=== PATIENT | female | born 1985 | race Caucasian/White ===

== ENCOUNTER 2016-02-14 13:15 | Emergency (ER) | payer OTHER ==
[~2016-02-14] VITALS: Ht 170.2 cm; Wt 56.0 kg
[2016-02-14 13:20] VITALS: BP 123/79; PULSE 78; RESP 12; TEMP 98.4; O2SAT 99
[2016-02-14 13:58] LABS: BLOOD, URINE TRACE (NEG); COMMENT (UR) CULT NOT INDICATED; CULTURE IF INDICATED CULT NOT INDICATED; GLUCOSE,URINE NEG (NEG); KETONE, URINE NEG (NEG); NITRITE,URINE NEG (NEG); PH, URINE 6.5 (5.0-8.5); SQUAMOUS EPITHELIAL CELL URINE 1 /hpf (0-5); URINE COLOR YELLOW (YELLW/STRAW)
[2016-02-14] MEDS ORDERED: SODIUM CHLOR 0.9% 1000 ML INJ 1,000 ML IV ONE (14:48)
[2016-02-14] MEDS ORDERED: SODIUM CHLORIDE 0.9% FLUSH 5 ML FLUSH IVF PRN (15:00)
[2016-02-14] MEDS ORDERED: KETOROLAC TROMETHAMINE 30 MG/ML (IVP) VIAL IVP ONE (15:00)
--- NOTE | 2016-02-14 15:14 | PD ---
HPI Chief Complaint: Complaint Time Seen by Provider: 15:00 Travel History International Travel<30 days: No Contact w/Intl Traveler<30days: No Traveled to known affect area: No History of Present Illness HPI 30-year-old female presents to the emergency room for evaluation of left flank pain, dysuria, and urgency that started 2 weeks ago. At onset of symptoms, she began taking cranberry juice and drinking more water. States one week ago it started to improve but she now has more dysuria than before. Patient reports sensitivity to her urethra especially during sex. Denies dyspareunia. Denies fever, chills, nausea, vomiting. Denies vaginal discharge or concern for STDs. Denies possibility of . PFSH Past Medical History ADHD: Yes (DURING HIGH SCHOOL/NOT FORMALLY TREATED) Autoimmune Disease: No Cancer: Yes (GRANDMOTHER(PATERNAL)BREAST CA/AUNT-BREAST CA) Cardiovascular Problems: No Chemotherapy: No Diabetes: No Diminished Hearing: No Endocrine: No Genitourinary: No Immune Disorder: No Musculoskeletal: No Neurologic: No Psychiatric: No Respiratory: No Radiation Therapy: No Sickle Cell Disease: No Thyroid Disease: No ?: Not : 5 Para: 2 Miscarriage: 2 Past Surgical History Abdominal Surgery: No AICD: No Arteriovenous Shunt: No Cardiac Surgery: No Ear Surgery: No Endocrine Surgery: No Eye Surgery: No Genitourinary Surgery: No Gynecologic Surgery: No Insulin Pump: No Joint Replacement: Yes Oral Surgery: No Pacemaker: No Thoracic Surgery: No Social History Alcohol Use: No Tobacco Use: No Substance Use: No Allergies-Medications (Allergen,Severity, Reaction): Coded Allergies: Amoxicillin (Verified Allergy, Severe, 02/14/16) Penicillin (Verified Allergy, Severe, 02/14/16) Bactrim (Verified Adverse Reaction, Severe, VOMITING, 02/14/16) Reported Meds & Prescriptions Reported Meds & Active Scripts Active No Active Prescriptions or Reported Medications Review of Systems Except as stated in HPI: all other systems reviewed are Neg Physical Exam Narrative GENERAL: Well-nourished, well-developed female in no acute distress. Afebrile. Ambulatory. SKIN: Warm and dry. HEAD: Normocephalic. EYES: No scleral icterus. No injection or drainage. NECK: Supple, trachea midline. No JVD or lymphadenopathy. GASTROINTESTINAL: Abdomen soft, non-tender, nondistended. Benign. No peritoneal signs. No significant pelvic tenderness. BACK: Nontender without obvious deformity. Very mild left-sided CVA tenderness. Data Data Last Documented VS Vital Signs Date Time Temp Pulse Resp B/P Pulse Ox O2 Delivery O2 Flow Rate FiO2 02/14/16 13:20 98.4 78 12 123/79 99 Room Air Orders Urinalysis - C+S If Indicated (02/14/16 13:21) Iv Access Insert/Monitor (02/14/16 13:21) Oxygen Administration (02/14/16 13:21) Oximetry (02/14/16 13:21) Ed Urine Pregnancytest Poc (02/14/16 13:21) Complete Blood Count With Diff (02/14/16 14:48) Basic Metabolic Panel (Bmp) (02/14/16 14:48) Ct Abd/Pel W/O Iv Contrast (02/14/16 14:48) Ketorolac Inj (Toradol Inj) (02/14/16 15:00) Sodium Chloride 0.9% Flush (Ns Flush) (02/14/16 15:00) Sodium Chlor 0.9% 1000 Ml Inj (Ns 1000 M (02/14/16 14:48) Labs Laboratory Tests Test 02/14/16 02/14/16 13:24 15:10 Urine Color YELLOW Urine Turbidity CLEAR Urine pH 6.5 Urine Specific [place] 1.019 Urine Protein NEG mg/dL Urine Glucose (UA) NEG mg/dL Urine Ketones NEG mg/dL Urine Occult Blood TRACE Urine Nitrite NEG Urine Bilirubin NEG Urine Urobilinogen LESS THAN 2.0 MG/DL Urine Leukocyte Esterase NEG Urine RBC 5 /hpf Urine WBC 1 /hpf Urine Squamous Epithelial 1 /hpf Cells Microscopic Urinalysis Comment CULT NOT INDICATED White Blood Count 7.2 TH/MM3 Red Blood Count 4.71 MIL/MM3 Hemoglobin 14.0 GM/DL Hematocrit 40.4 % Mean Corpuscular Volume 85.8 FL Mean Corpuscular Hemoglobin 29.8 PG Mean Corpuscular Hemoglobin 34.7 % Concent Red Cell Distribution Width 13.4 % Platelet Count 293 TH/MM3 Mean Platelet Volume 9.6 FL Neutrophils (%) (Auto) % Lymphocytes (%) (Auto) % Monocytes (%) (Auto) % Eosinophils (%) (Auto) % Basophils (%) (Auto) % Neutrophils # (Auto) TH/MM3 Lymphocytes # (Auto) TH/MM3 Monocytes # (Auto) TH/MM3 Eosinophils # (Auto) TH/MM3 Basophils # (Auto) TH/MM3 CBC Comment AUTO DIFF Sodium Level 139 MEQ/L Potassium Level 4.1 MEQ/L Chloride Level 106 MEQ/L Carbon Dioxide Level 26.0 MEQ/L Anion Gap 7 MEQ/L Blood Urea Nitrogen 11 MG/DL Creatinine 0.76 MG/DL Estimat Glomerular Filtration 90 ML/MIN Rate Random Glucose 79 MG/DL Calcium Level 8.8 MG/DL [facility] Medical Decision Making Medical Screen Exam Complete: Yes Emergency Medical Condition: Yes Medical Record Reviewed: Yes Differential Diagnosis Pyelonephritis versus ureteritis versus nephrolithiasis Narrative Course 30-year-old female presents to the emergency room for evaluation of left-sided flank pain, dysuria, and urgency for the past 2 weeks that improved slightly one week ago. Patient denies systemic signs of infection. Afebrile and well- appearing in the emergency room. Vital signs stable. Resting comfortably in bed. ED test is negative. UA shows microscopic hematuria but no evidence of infection. Kidney stone work up was initiated. CBC and BMP are unremarkable. CT shows bilateral ovarian cysts but no evidence of nephrolithiasis. Patient feels as though she passed the stones previously which is likely what happened. She was discharged with instructions for ovarian cysts and hematuria and told to follow up with a primary care physician or return to the emergency room for worsening symptoms. She understands and agrees to this plan. Diagnosis Primary Impression: Dysuria Additional Impression: Ovarian cyst Qualified Code: N83.201 - Cysts of both ovaries Referrals: Primary Care Physician Patient Instructions: General Instructions, Hematuria (ED), Ovarian Cyst (ED) Additional Instructions: Rest and drink plenty of fluids. Take ibuprofen with food as directed, as needed for pain. Follow-up with a primary care physician for ovarian cysts and hematuria. Return to the emergency room for worsening symptoms. Scripts No Active Prescriptions or Reported Meds Disposition: 01 DISCHARGE HOME Condition: Stable Lilian Jarrell Feb 14, 2016 15:14
[2016-02-14 15:39] LABS: HEMATOCRIT 40.4 % (35.0-46.0); MEAN CELL VOLUME 85.8 FL (80.0-100.0); MEAN CORPUSCULAR HEMOGLOBIN 29.8 PG (27.0-34.0); MEAN CORPUSCULAR HGB CONC 34.7 % (32.0-36.0); PLATELET COUNT 293 TH/MM3 (150-450); RED BLOOD COUNT 4.71 MIL/MM3 (4.00-5.30); RED CELL DISTRIBUTION WIDTH 13.4 % (11.6-17.2); WHITE BLOOD COUNT 7.2 TH/MM3 (4.0-11.0)
[2016-02-14 15:40] LABS: HEMO FLAGS AUTO DIFF
[2016-02-14 15:42] LABS: POTASSIUM 4.1 MEQ/L (3.5-5.1)
--- NOTE | 2016-02-14 16:04 | RADRPT ---
EXAM DATE/TIME: 02/14/2016 15:38 [facility] COMPARISON: No previous studies available for comparison. INDICATIONS : Lower pelvic and left flank pain. ORAL CONTRAST: No oral contrast ingested. RADIATION DOSE: 13.4 CTDIvol (mGy) MEDICAL HISTORY : None SURGICAL HISTORY : None. ENCOUNTER: Initial ACUITY: 1 day PAIN SCALE: 6/10 LOCATION: Left flank TECHNIQUE: Volumetric scanning of the abdomen and pelvis was performed. Using automated exposure control and ad justment of the mA and/or kV according to patient size, radiation dose was kept as low as reasonably achievable to obtain optimal diagnostic quality images. FINDINGS: LOWER LUNGS: The visualized lower lungs are clear. LIVER: Homogeneous density without lesion. There is no dilation of the biliary tree. No calcified gallston es. SPLEEN: Normal size without lesion. PANCREAS: Within normal limits. KIDNEYS: Normal in size and shape. There is no mass, stone, or hydronephrosis. ADRENAL GLANDS: Within normal limits. VASCULAR: There is no aortic aneurysm. BOWEL/MESENTERY: The stomach, small bowel, and colon demonstrate no acute abnormality. There is no free intraperitone al air or fluid. ABDOMINAL WALL: Within normal limits. RETROPERITONEUM: There is no lymphadenopathy. BLADDER: No wall thickening or mass. REPRODUCTIVE: 17 mm right and 15 mm left fairly simple appearing ovarian cysts are seen. No free fluid. INGUINAL: There is no lymphadenopathy or hernia. MUSCULOSKELETAL: Within normal limits for patient age. CONCLUSION: 1. Small, benign appearing cysts of both ovaries. 2. Otherwise essentially normal. No renal or ureteral calculus or evidence of obstructive uropathy. Ancelmo Encarnacion MD on February 14, 2016 at 16:01 Board Certified Radiologist. This report was verified electronically.
[2016-02-14 16:19] LABS: BASOPHILS 1 % (0-2); EOSINOPHILS 5 % (0-4); NEUTROPHIL # MANUAL DIFF 2.6 TH/MM3 (1.8-7.7); PLATELET ESTIMATE SMEAR NORMAL (NORMAL); PLATELET MORPHOLOGY NORMAL (NORMAL); POLYS (SEG NEUTROPHILS) 36 % (16-70); SCAN/DIFF FINAL DIFF MANUAL; WBC DIFF SAMPLE 100
== END 2016-02-14 16:38 | disposition home or self-care (01) ==
LOC: NEPB 13:15
DX: R30.0 Dysuria (principal); N83.202 Unspecified ovarian cyst, left side; N83.201 Unspecified ovarian cyst, right side; R31.29 Other microscopic hematuria; Z86.59 Personal history of other mental and behavioral disorders
CPT/HCPCS: 74176; 80048; 81001; 84703; 85007; 85027; 96361; 96374; 99284; J1885; J7030

== ENCOUNTER 2016-07-14 09:25 | Emergency (ER) | payer OTHER ==
[~2016-07-14] VITALS: Ht 170.2 cm; Wt 55.0 kg
[2016-07-14 09:27] VITALS: BP 136/80; PULSE 77; RESP 15; TEMP 98.3; O2SAT 98
[2016-07-14 09:47] VITALS: BP 106/64; PULSE 87; RESP 12; O2SAT 99
[2016-07-14] MEDS ORDERED: LESSTAB PO (09:47)
[2016-07-14] MEDS ORDERED: PRED20 PO (10:11)
--- NOTE | 2016-07-14 10:12 | PD ---
HPI Chief Complaint: Facial Pain or Swelling Time Seen by Provider: 10:04 Travel History International Travel<30 days: No Contact w/Intl Traveler<30days: No Traveled to known affect area: No History of Present Illness HPI Patient is a 31-year-old female presents emergency department right eye swelling for the past 18-24 hours. Patient states she was outdoors yesterday and was bit by a mosquito on her right shoulder. She states since then her right eye historian as well. Denies any visual disturbances or eye pain. States the swelling is gradually worsening and limiting her ability to open her eye. Patient states she thinks she might of been bitten by an insect on her right side of her face as well. Denies and difficulty swallowing shortness of breath wheezing or fevers. PFSH Past Medical History ADHD: Yes (DURING HIGH SCHOOL/NOT FORMALLY TREATED) Autoimmune Disease: No Cancer: Yes (GRANDMOTHER(PATERNAL)BREAST CA/AUNT-BREAST CA) Cardiovascular Problems: No Chemotherapy: No Diabetes: No Diminished Hearing: No Endocrine: No Genitourinary: No Heparin Induced Thrombocytopen: No Immune Disorder: No Implanted Vascular Access Dvce: No Medical other: Yes (MRSA) Musculoskeletal: No Neurologic: No Psychiatric: No Respiratory: No Radiation Therapy: No Sickle Cell Disease: No Thyroid Disease: No ?: Not : 5 Para: 2 Miscarriage: 2 Past Surgical History Abdominal Surgery: No AICD: No Arteriovenous Shunt: No Cardiac Surgery: No Ear Surgery: No Endocrine Surgery: No Eye Surgery: No Genitourinary Surgery: No Gynecologic Surgery: No Insulin Pump: No Joint Replacement: Yes Oral Surgery: No Pacemaker: No Thoracic Surgery: No Social History Alcohol Use: No Tobacco Use: No Substance Use: No Allergies-Medications (Allergen,Severity, Reaction): Coded Allergies: Amoxicillin (Verified Allergy, Severe, 07/14/16) Penicillin (Verified Allergy, Severe, 07/14/16) Bactrim (Verified Adverse Reaction, Severe, VOMITING, 07/14/16) Reported Meds & Prescriptions Reported Meds & Active Scripts Active Prednisone 20 Mg Tab 60 Mg PO DAILY 5 Days Reported Lessina (Levonorgestrel-Ethinyl Estradiol) 0.1-20 mg-mcg Tab 1 Tab PO DAILY Review of Systems Except as stated in HPI: all other systems reviewed are Neg Physical Exam Narrative GENERAL: Well-nourished, well-developed patient. SKIN: There is a small area of erythema without induration of the right upper extremity consistent with localized reaction to an insect bite. No abscess. No lymphadenitis. There is also some soft tissue swelling periorbital on the right eye. Left eye is not involved. There is no reddening of the skin overlying. No induration. HEAD: Normocephalic. EYES: No scleral icterus or injection. Pupils are PERRLA, I checked movements are intact. No tenderness. NECK: Supple, trachea midline. No JVD or lymphadenopathy. CARDIOVASCULAR: Regular rate and rhythm without murmurs, gallops, or rubs. RESPIRATORY: Breath sounds equal bilaterally. No accessory muscle use. GASTROINTESTINAL: Abdomen soft, non-tender, nondistended. MUSCULOSKELETAL: No cyanosis, or edema. BACK: Nontender without obvious deformity. No CVA tenderness. Data Data Last Documented VS Vital Signs Date Time Temp Pulse Resp B/P Pulse Ox O2 Delivery O2 Flow Rate FiO2 07/14/16 09:47 87 12 106/64 99 07/14/16 09:27 98.3 MDM Medical Decision Making Medical Screen Exam Complete: Yes Emergency Medical Condition: Yes Differential Diagnosis Bug bite, cellulitis seems unlikely, facial edema. Narrative Course Patient 31-year-old female appears well with some mild soft tissue edema of the right periorbital region. No airway involvement there is some small localized reaction to the right upper extremity as well. Discussed with the patient symptomatically management including steroid course. Discussed return to ED criteria. Diagnosis Primary Impression: Periorbital edema Additional Instructions: Use calamine lotion on your face and her right shoulder, use cortisone cream on her shoulder only do not apply to your face. Take her steroids until all gone. Med/Other Pt SpecificInfo: Prescription(s) given Scripts Prednisone 20 Mg Tab60 Mg PO DAILY 5 Days Ref 0 Prov:Wally Small MD 07/14/16 Disposition: 01 DISCHARGE HOME Condition: Stable Wally Small MD Jul 14, 2016 10:12
== END 2016-07-14 10:20 | disposition home or self-care (01) ==
LOC: NEPD 09:25
DX: R60.0 Localized edema (principal)
CPT/HCPCS: 99283

== ENCOUNTER 2017-06-10 16:37 | Emergency (ER) | payer OTHER ==
[~2017-06-10] VITALS: Ht 170.2 cm; Wt 55.0 kg
[~2017-06-10 16:37] MED LIST: LESSTAB PO; PRED20 PO
[2017-06-10 16:49] VITALS: BP 110/64; PULSE 66; RESP 19; TEMP 98.6; O2SAT 99
== END 2017-06-10 19:12 | disposition left against medical advice (07) ==
LOC: NED 16:37
DX: O21.9 Vomiting of pregnancy, unspecified (principal); Z3A.00 Weeks of gestation of pregnancy not specified; Z53.21 Procedure and treatment not carried out due to patient leaving prior to being seen by health care provider
CPT/HCPCS: 99281

== ENCOUNTER 2018-01-24 17:02 | Inpatient (IN) ==
[~2018-01-24 17:02] MED LIST changes: +Diphtheria/Tetanus/Pertussis Vaccine Inj 0.5 ML Syringe IM ONE; -LESSTAB PO; +Measles/Mumps/Rubella Vaccine Inj 0.5 ML Vial SQ ONE; -PRED20 PO
[2018-01-24] MEDS ORDERED: Sod Chloride 0.9% Inj 1,000 ML IV.CONT PRN (18:13)
[2018-01-24] MEDS ORDERED: Sodium Chlor 0.9% Inj 500 ML IV.SIG PRN (18:13)
[2018-01-24] MEDS ORDERED: fentaNYL Citrate Inj 100 MCG/2 ML Ampul IV.PUSH PRN ×2 (18:13)
[2018-01-24] MEDS ORDERED: Oxytocin 30 Units/500ml Premix 30 UNITS/500 ML BAG IV.SIG ONE (18:13)
[2018-01-24] MEDS ORDERED: Naloxone Inj 0.4 MG/ML Vial IV.PUSH PRN ×2 (18:13→22:45)
[2018-01-24] MEDS ORDERED: Citric Acid/Sodium Citrate Liq 30 ML UDC PO SCH (18:15)
--- NOTE | 2018-01-24 18:17 | ED ---
History of Present Illness Primary Care Physician: UNKNOWN [facility] Chief Complaint: Contractions History of Present Illness: 32-year-old at 39 weeks 1 day presents complaining of contractions. 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 Stop: 01/28/18 18:14 Fentanyl Citrate (Fentanyl Inj) 50 mcg IV.PUSH Q1H PRN PRN Reason: Pain Scale 3 - 5 Fentanyl Citrate (Fentanyl Inj) 100 mcg IV.PUSH Q1H PRN PRN Reason: PAIN SCALE 6 TO 10 Lactated Ringer's (Lr 1000 Ml Inj) 1,000 mls @ 3,000 mls/hr IV.SIG UNSCH PRN PRN Reason: compromise or epidural Lactated Ringer's (Lr 1000 Ml Inj) 1,000 mls @ 125 mls/hr IV.CONT .Q8H VALERIY Sodium Chloride (Ns Inj) 500 mls @ 1,000 mls/hr IV.SIG UNSCH PRN PRN Reason: SEE LABEL COMMENTS Oxytocin (Pitocin 30 Units/Ns 500 Ml Premix) 30 units in 500 mls @ 999 mls/hr IV.SIG BOLUS ONE Stop: 01/24/18 18:43 Sodium Chloride (Ns Inj) 1,000 mls @ 100 mls/hr IV.CONT .Q10H PRN PRN Reason: SEE LABEL COMMENTS Lidocaine HCl (Xylocaine 1% Inj) 0.1 ml I-DERMAL PRN PRN PRN Reason: For IV start Stop: 01/27/18 18:12 Lidocaine HCl (Xylocaine 1% Inj) 10 ml INFILTRATN PRN PRN PRN Reason: For episiotomy repair Stop: 01/26/18 18:12 Mineral Oil (Muri-Lube Oil) 10 ml TOPICAL PRN PRN PRN Reason: PRN perineal massage Naloxone HCl (Narcan Inj) 0.1 mg IV.PUSH Q2M PRN PRN Reason: for opiate reversal Allergies Allergy/AdvReac Type Severity Reaction Status Date / Time amoxicillin Allergy Severe Unverified 09/26/16 21:45 penicillin G Allergy Severe Unverified 09/26/16 21:45 sulfamethoxazole AdvReac Severe VOMITING Unverified 09/26/16 21:45 trimethoprim AdvReac Severe VOMITING Unverified 09/26/16 21:45 Exam Vital signs: Vital Signs 01/24/18 17:16 01/24/18 17:20 Pulse Rate 76 95 H Blood Pressure 120/72 Narrative: GENERAL: Well-nourished, well-developed patient. SKIN: Warm and dry. HEAD: Normocephalic and atraumatic. EYES: No scleral icterus. No injection or drainage. ENT: No nasal drainage noted. Mucous membranes pink. Airway patent. NECK: Supple, trachea midline. No JVD. CARDIOVASCULAR: Regular rate and rhythm without murmurs, gallops, or rubs. RESPIRATORY: Breath sounds equal bilaterally. No accessory muscle use. BREASTS: Bilateral exam showed no masses , no retractions, no nipple discharge. ABDOMEN/GI: Abdomen soft, non-tender, bowel sounds present, no rebound, no guarding Gravid to 39 weeks size Fundal Height: 39 GENITOURINARY: External Genitalia: intact and normal in appearance BUS glands: Unremarkable Cervix: Soft Dilatation: 5-6 Effacement: 90% Station: 0 Presentation: Vertex Membranes: Intact Uterine Contractions: Regular FHT's: Category: 1 Variability: Moderate EXTREMITIES: No cyanosis or edema. BACK: Nontender without obvious deformity. No CVA tenderness. NEUROLOGICAL: Awake and alert. Motor and sensory grossly within normal limits. Five out of 5 muscle strength in all muscle groups. Normal speech. Assessment and Plan - Diagnosis (1) Uterine contractions during Code(s): O62.2 - Other uterine inertia Status: Acute (2) 39 weeks gestation of Code(s): Z3A.39 - 39 weeks gestation of Status: Acute Discharge Plan - Discharge Disposition Patient Disposition: ED Admit(ED Internal Use Only) - Physicians Team ED Provider: Viviana Ríos Primary Care Provider: UNKNOWN,
[2018-01-24 18:47] LABS: Baso # (Auto) 0.1 th/mm3 (0.0-0.2); Baso % (Auto) 0.4 % (0.0-2.0); Eos # (Auto) 0.1 th/mm3 (0.0-0.4); Eos % (Auto) 0.7 % (0.0-4.0); Hematocrit 35.8 % (35.0-46.0); Hemoglobin 12.6 gm/dL (11.6-15.3); Lymph # (Auto) 2.9 th/mm3 (1.0-4.8); Lymph % (Auto) 14.3 % (9.0-44.0); Mean Corpuscular HGB Conc 35.1 % (32.0-36.0); Mean Corpuscular Hemoglobin 29.8 pg (27.0-34.0); Mean Platelet Volume 9.1 fL (7.0-11.0); Mono # (Auto) 1.2 th/mm3 (0.0-0.9); Mono % (Auto) 5.8 % (0.0-8.0); Neut % (Auto) 78.8 % (16.0-70.0); Platelet Count 347 th/mm3 (150-450); Red Blood Count 4.22 mil/mm3 (4.00-5.30); Red Cell Distribution Width 14.2 % (11.6-17.2); White Blood Count 20.4 th/mm3 (4.0-11.0)
[2018-01-24] MEDS ORDERED: fentaNYL 2MCG-Bupiv 0.125% Epi 150 ML EPIDURAL ONE (18:48)
[2018-01-24 19:02] LABS: Amphetamine Urine With Conf Neg (Neg); Benzodiazepine Urine With Conf Neg (Neg); Cocaine Urine With Conf Neg (Neg); Opiates Urine With Conf Neg (Neg)
[2018-01-24 19:07] LABS: Bacteria,Urine Few /hpf; Bilirubin,Urine Negative (Negative); Clarity,Urine Hazy (Clear); Glucose,Urine (UA) Negative (Negative); Hyaline Casts,Urine 1 /lpf (0-3); Leukocyte Esterase,Urine Small (Negative); Mucus,Urine Moderate /lpf (Occasional); Nitrite,Urine Negative (Negative); Specific Gravity,Urine 1.025 (1.002-1.035); Squamous Epithelial Cell,Urine 3 /hpf (0-5)
[2018-01-24 19:09] VITALS: RESP 18
[2018-01-24 19:09] LABS: Cannabinoid Urine With Conf Pos (Neg); Color,Urine Dark-Yellow (Yellw/Straw)
[2018-01-24 19:10] LABS: Urobilinogen,Urine 0.2 mg/dL (Less than 2)
[2018-01-24] MEDS ORDERED: Lidocaine 1% Inj 50 ML Vial ONE (19:13)
[2018-01-24] MEDS ORDERED: fentaNYL 2MCG-Bupiv 0.125% Epi 150 ML EPIDURAL PRN (19:35)
[2018-01-24] MEDS ORDERED: fentaNYL Citrate Inj 100 MCG/2 ML Ampul EPIDURAL ONE (19:35)
[2018-01-24] MEDS ORDERED: Influenza (Quadrivalent) Vaccine 0.5 ML Syringe IM ONE (19:45)
[2018-01-24] MEDS ORDERED: Lidocaaine 1.5%/Epinephrine 1:200,000 PF Inj 5 ML Amp ONE (21:11)
[2018-01-24] MEDS ORDERED: Lidocaine PF 1% Inj 5 ML Vial ONE (21:11)
[2018-01-24] MEDS ORDERED: Sodium Chloride 0.9% 2 ML Flush PRN IV.FLUSH (21:53)
[2018-01-24] MEDS ORDERED: miSOPROStol 200 MCG Tablet ONE (22:31)
[2018-01-24] MEDS ORDERED: Oxytocin 30 Units/500ml Premix 30 UNITS/500 ML BAG IV.CONT PRN (22:45)
[2018-01-24] MEDS ORDERED: Acetaminophen 325 MG Tablet PO PRN (22:45)
[2018-01-24] MEDS ORDERED: Bisacodyl 10 MG Supp RECTAL PRN (22:45)
[2018-01-24] MEDS ORDERED: Benzocaine 20% Top Spray 60 ML Can TOPICAL PRN (22:45)
[2018-01-24] MEDS ORDERED: Zolpidem Tartrate 5 MG Tablet PO PRN (22:45)
[2018-01-24] MEDS ORDERED: Witch Hazel 50%/Glyderin 12.5% 40 Pad Jar RECTAL PRN (22:45)
--- NOTE | 2018-01-24 22:46 | P.OBDELI ---
Weeks Gestation: 39 Patient Started Active Labor: Yes Active Labor Start Date: 01/24/18 Medical Induction of Labor: No Artificial Rupture of Membrane: Yes Artificial ROM Date: 01/24/18 Artificial ROM Time: 21:00 Anesthesia: Epidural Episiotomy: none Vaginal Delivery: Normal Presentation: Occiput anterior Nuchal Cord: None Delayed Cord Clamping (45 sec): Yes Placenta: Spontaneous delivery, 3 vessel cord Laceration: None Estimated blood loss (mL): 50 Male A Delivery Date: 01/24/18 Delivery Time: 22:31 score (1 min): 9 score (5 min): 9
[2018-01-25 06:14] LABS: Baso # (Auto) 0.1 th/mm3 (0.0-0.2); Baso % (Auto) 0.4 % (0.0-2.0); Eos # (Auto) 0.1 th/mm3 (0.0-0.4); Eos % (Auto) 0.3 % (0.0-4.0); Hematocrit 33.7 % (35.0-46.0); Hemoglobin 11.1 gm/dL (11.6-15.3); Lymph # (Auto) 2.1 th/mm3 (1.0-4.8); Mean Corpuscular HGB Conc 32.9 % (32.0-36.0); Mean Corpuscular Hemoglobin 28.3 pg (27.0-34.0); Mean Platelet Volume 9.4 fL (7.0-11.0); Mono # (Auto) 1.4 th/mm3 (0.0-0.9); Neut # (Auto) 19.4 th/mm3 (1.8-7.7); Neut % (Auto) 84.3 % (16.0-70.0); Platelet Count 315 th/mm3 (150-450); Red Blood Count 3.92 mil/mm3 (4.00-5.30); White Blood Count 23.1 th/mm3 (4.0-11.0)
[2018-01-25] MEDS ORDERED: Sodium Chloride 0.9% 2 ML Flush BID IV.FLUSH SCH (09:00)
[2018-01-25] MEDS: Senna/Docusate Sodium 8.6/50 MG Tablet PO SCH ×2 (09:23→23:02)
[2018-01-25] MEDS: Nitrofurantoin Monohydrate-Macrocrystal 100 MG Capsule PO SCH ×2 (09:23→19:27)
--- NOTE | 2018-01-25 10:07 | P.PNOB ---
Subjective Post day: 1 Objective Vital Signs/I&O: Vital Signs 01/24/18 17:16 01/24/18 17:20 01/24/18 18:05 Temperature Pulse Rate 76 95 H 81 Respiratory Rate Blood Pressure 120/72 01/24/18 18:20 01/24/18 18:25 01/24/18 18:50 Temperature Pulse Rate 62 64 66 Respiratory Rate Blood Pressure 01/24/18 18:55 01/24/18 18:59 01/24/18 19:00 Temperature Pulse Rate 73 76 92 H Respiratory Rate Blood Pressure 153/79 H 01/24/18 19:01 01/24/18 19:05 01/24/18 19:07 Temperature 97.9 F Pulse Rate 82 63 99 H Respiratory Rate 18 Blood Pressure 137/82 130/84 01/24/18 19:10 01/24/18 19:30 01/24/18 20:00 Temperature Pulse Rate 97 H 70 61 Respiratory Rate Blood Pressure 118/61 113/56 L 97/41 L 01/24/18 20:22 01/24/18 21:00 01/24/18 21:20 Temperature Pulse Rate 66 74 75 Respiratory Rate Blood Pressure 97/42 L 104/46 L 106/58 L 01/24/18 21:38 01/24/18 21:45 01/24/18 22:00 Temperature 98.6 F Pulse Rate 75 68 72 Respiratory Rate 18 Blood Pressure 103/48 L 100/55 L 110/51 L 01/24/18 22:15 01/24/18 22:30 01/24/18 22:45 Temperature Pulse Rate 75 72 Respiratory Rate 18 Blood Pressure 97/60 L 108/47 L 01/24/18 23:00 01/24/18 23:02 01/24/18 23:03 Temperature 98.2 F Pulse Rate 89 Respiratory Rate 18 Blood Pressure 97/51 L 01/24/18 23:15 01/24/18 23:25 01/24/18 23:31 Temperature Pulse Rate 67 79 Respiratory Rate 18 18 Blood Pressure 112/42 L 119/68 01/24/18 23:45 01/25/18 00:00 01/25/18 00:45 Temperature Pulse Rate 74 71 58 L Respiratory Rate 18 18 Blood Pressure 106/56 L 112/55 L 110/57 L 01/25/18 01:04 01/25/18 08:00 Temperature 98.4 F 98.2 F Pulse Rate 64 59 L Respiratory Rate 18 18 Blood Pressure 97/61 L 93/56 L Intake & Output 01/24/18 01/25/18 01/25/18 18:59 06:59 18:59 Intake Total 1000 / 1000 Balance 1000 / 1000 Intake: IV 1000 / 1000 LR 1000 mL Inj 1,000 ML @ 125 1000 / 1000 mls/hr IV.CONT .Q8H VALERYI Rx#: [id number] Result Diagrams: 01/25/18 05:11 Objective Remarks: GENERAL: Well-nourished, well-developed patient. CARDIOVASCULAR: Regular rate and rhythm without murmurs, gallops, or rubs. RESPIRATORY: Breath sounds equal bilaterally. No accessory muscle use. ABDOMEN/GI: Abdomen soft, non-tender. Fundus: Firm, non-tender at umbilicus. GENITOURINARY: Light to moderate bleeding. EXTREMITIES: No cyanosis or edema, non-tender, without signs of DVT. Medications and IVs: Active Medications Acetaminophen (Tylenol) 650 mg PO Q4H PRN PRN Reason: PAIN SCALE 1 TO 2 Al Hydroxide/Mg Hydroxide (Milk Of Magnesia Liq) 30 ml PO Q12H PRN PRN Reason: Mild Constipation Benzocaine (Americaine 20% [place]) 1 spray TOPICAL Q4H PRN PRN Reason: For Perineum Discomfort Bisacodyl (Dulcolax Supp) 10 mg RECTAL DAILY PRN PRN Reason: SEVERE CONSITIPATION Oxytocin (Pitocin 30 Units/Ns 500 Ml Premix) 30 units in 500 mls @ 100 mls/hr IV.CONT UNSCH PRN PRN Reason: Heavy bleeding Ibuprofen (Motrin) 800 mg PO Q8H PRN PRN Reason: For Cramping Last Admin: 01/25/18 04:07 Dose: 800 mg Lactulose (Lactulose Liq) 30 ml PO DAILY PRN PRN Reason: SEVERE CONSITIPATION Miscellaneous Information (Misc Information) 1 each OTHER UNSCH PRN PRN Reason: SEE LABEL COMMENTS Stop: 01/25/18 19:35 Miscellaneous Information (Misc Information) 1 each OTHER UNSCH PRN PRN Reason: SEE LABEL COMMENTS Stop: 01/25/18 19:35 Naloxone HCl (Narcan Inj) 0.1 mg IV.PUSH Q2M PRN PRN Reason: for opiate reversal Nitrofurantoin Macrocrystals (Macrobid) 100 mg PO BIDPC [facility] Last Admin: 01/25/18 09:23 Dose: 100 mg Ondansetron HCl (Zofran Odt) 4 mg PO Q6H PRN PRN Reason: NAUSEA OR VOMITING Senna/Docusate Sodium (Diana-Colace) 1 tab PO BID [facility] Last Admin: 01/25/18 09:23 Dose: 1 tab Sennosides (Senokot) 17.2 mg PO Q12H PRN PRN Reason: Moderate Constipation Sodium Chloride (Ns Flush) 2 ml IV.FLUSH PRN PRN PRN Reason: FLUSH AFTER USING IV ACCESS Sodium Chloride (Ns Flush) 2 ml IV.FLUSH BID [facility] Last Admin: 01/25/18 09:23 Dose: 2 ml Witch Kiesha/Glycerin (Tucks Pads) 1 applicatio RECTAL QID PRN PRN Reason: HEMORRHOIDS Zolpidem Tartrate (Ambien) 5 mg PO HS PRN PRN Reason: SLEEP Assessment and Plan - Diagnosis (1) (normal spontaneous vaginal delivery) Code(s): O80 - Encounter for full-term uncomplicated delivery Status: Acute - Plan day # 1. AFVSS overnight. Pain well controlled. Decreased lochia. Denies dysuria. No breast tenderness. She is feeding the baby via breast. Appetite good. No nausea or vomiting. Passing flatus. No bowel movement. Ambulating well. Denies calf pain, shortness of breath, or cough. Otherwise, she is doing well this morning and has no other complaints. 32 y/o who is PPD# 1 s/p . -Continue routine care. -Percocet and Motrin PRN pain. -Encouraged OOB. Advised pelvic rest for 6 wks. -Will need a f/u appt. within 6 wks. -Re: ctrl, she would like a tubal ligation. Information on how the process works discussed with patient. -D/c in 1-2 more days. wdw OB attending / Jones Huitron
--- NOTE | 2018-01-26 07:23 | P.PNOB ---
Subjective Interval history: day # 2. AFVSS overnight. Pain well controlled. Decreased lochia. Denies dysuria. No breast tenderness. She is feeding the baby via breast. Appetite good. No nausea or vomiting. Passing flatus. No bowel movement. Ambulating well. Denies calf pain, shortness of breath, or cough. Otherwise, she is doing well this morning and has no other complaints. Objective Vital Signs/I&O: Vital Signs 01/25/18 08:00 01/25/18 20:00 Temperature 98.2 F 98.4 F Pulse Rate 59 L 64 Respiratory Rate 18 18 Blood Pressure 93/56 L 94/59 L Result Diagrams: 01/25/18 05:11 Objective Remarks: GENERAL: Well-nourished, well-developed patient. CARDIOVASCULAR: Regular rate and rhythm without murmurs, gallops, or rubs. RESPIRATORY: Breath sounds equal bilaterally. No accessory muscle use. ABDOMEN/GI: Abdomen soft, non-tender. Fundus: Firm, non-tender at umbilicus. GENITOURINARY: Light to moderate bleeding. EXTREMITIES: No cyanosis or edema, non-tender, without signs of DVT. Medications and IVs: Active Medications Acetaminophen (Tylenol) 650 mg PO Q4H PRN PRN Reason: PAIN SCALE 1 TO 2 Al Hydroxide/Mg Hydroxide (Milk Of Magnulises Liq) 30 ml PO Q12H PRN PRN Reason: Mild Constipation Benzocaine (Americaine 20% Top [place]) 1 spray TOPICAL Q4H PRN PRN Reason: For Perineum Discomfort Bisacodyl (Dulcolax Supp) 10 mg RECTAL DAILY PRN PRN Reason: SEVERE CONSITIPATION Oxytocin (Pitocin 30 Units/Ns 500 Ml Premix) 30 units in 500 mls @ 100 mls/hr IV.CONT UNSCH PRN PRN Reason: Heavy bleeding Ibuprofen (Motrin) 800 mg PO Q8H PRN PRN Reason: For Cramping Last Admin: 01/25/18 23:02 Dose: 800 mg Lactulose (Lactulose Liq) 30 ml PO DAILY PRN PRN Reason: SEVERE CONSITIPATION Naloxone HCl (Narcan Inj) 0.1 mg IV.PUSH Q2M PRN PRN Reason: for opiate reversal Nitrofurantoin Macrocrystals (Macrobid) 100 mg PO BIDPC [facility] Last Admin: 01/25/18 19:27 Dose: 100 mg Ondansetron HCl (Zofran Odt) 4 mg PO Q6H PRN PRN Reason: NAUSEA OR VOMITING Senna/Docusate Sodium (Diana-Colace) 1 tab PO BID [facility] Last Admin: 01/25/18 23:02 Dose: 1 tab Sennosides (Senokot) 17.2 mg PO Q12H PRN PRN Reason: Moderate Constipation Sodium Chloride (Ns Flush) 2 ml IV.FLUSH PRN PRN PRN Reason: FLUSH AFTER USING IV ACCESS Sodium Chloride (Ns Flush) 2 ml IV.FLUSH BID [facility] Last Admin: 01/25/18 23:03 Dose: Not Given Witch Kiesha/Glycerin (Tucks Pads) 1 applicatio RECTAL QID PRN PRN Reason: HEMORRHOIDS Zolpidem Tartrate (Ambien) 5 mg PO HS PRN PRN Reason: SLEEP Assessment and Plan - Diagnosis (1) Vaginal delivery Code(s): O80 - Encounter for full-term uncomplicated delivery Status: Acute - Plan 32 y/o who is PPD# 2 s/p . -Continue routine care. - Motrin PRN pain. -Encouraged OOB. Advised pelvic rest for 6 wks. -Will need a f/u appt. within 6 wks. -Re: ctrl, she would like a tubal ligation. Information on how the process works discussed with patient. -D/c today carlos Granda
[2018-01-26] MEDS: Nitrofurantoin Monohydrate-Macrocrystal 100 MG Capsule PO SCH (08:56)
[2018-01-26] MEDS: Senna/Docusate Sodium 8.6/50 MG Tablet PO SCH (08:56)
[2018-01-26 09:28] VITALS: BP 111/62; PULSE 63; TEMP 98.2
== END 2018-01-26 11:50 | disposition home or self-care (01) ==
LOC: HOBED 17:02 → H1EA 17:35 → H2E 18:08 → H1EA 01-25 00:53
PROVIDERS: ADMIT Obstetrics & Gynecology; ATTEND Obstetrics & Gynecology